=== PATIENT | male | born 1980 | race Two or more races ===

== ENCOUNTER 2017-09-19 14:26 | Outpatient (CLI) | payer SELFPAY | END 2017-09-19 23:59 | disposition home or self-care (01) | LOC: MRI 14:26 | PROVIDERS: ATTEND Internal Medicine | DX: M23.222 Derangement of posterior horn of medial meniscus due to old tear or injury, left knee (principal); M23.221 Derangement of posterior horn of medial meniscus due to old tear or injury, right knee | CPT/HCPCS: 73721-TC ==